=== PATIENT | male | born 2000 | race African-American/Black ===

== ENCOUNTER 2020-08-12 13:57 | Emergency (ER) | payer OTHER ==
[~2020-08-12] VITALS: Ht 177.8 cm; Wt 86.3 kg
[2020-08-12 13:57] VITALS: BP 137/74
[2020-08-12] MEDS ORDERED: CLAR10CA3 PO (15:00)
== END 2020-08-12 15:18 | disposition home or self-care (01) ==
LOC: M ED 13:57
DX: H10.45 Other chronic allergic conjunctivitis (principal); J30.2 Other seasonal allergic rhinitis; F17.290 Nicotine dependence, other tobacco product, uncomplicated